=== PATIENT | male | born 1975 | race Caucasian/White ===

== ENCOUNTER 2021-12-13 09:51 | Outpatient (RCR) | payer OTHER, SELFPAY ==
--- NOTE | 2021-12-23 12:40 | HP.OTFCE_ITS ---
Floor (Occasional 1-33% of Day): 100# Floor (Frequent 34-66% of Day): 50# Floor (Constant 67-100% of Day): 20# Floor PDL: Heavy Knee (Occasional 1-33% of Day): 100# Knee (Frequent 34-66% of Day): 50# Knee (Constant 67-100% of Day): 20# Knee PDL: Heavy Waist (Occasional 1-33% of Day): 85# Waist (Frequent 34-66% of Day): 42# Waist (Constant 67-100% of Day): 17# Waist PDL: Medium-Heavy Shoulder (Occasional 1-33% of Day): 65# Shoulder (Frequent 34-66% of Day): 32# Shoulder (Constant 67-100% of Day): 13# Shoulder PDL: Medium-Heavy Overhead (Occasional 1-33% of Day): 35# Overhead (Frequent 34-66% of Day): 18# Overhead (Constant 67-100% of Day): 7# Overhead PDL: Light-Medium Comments: HEAVY PHYSICAL DEMAND LEVEL for lifting at floor and waist level. MEDIUM HEAVY PHYSICAL DEMAND LEVEL for lifting at waist and shoulder levels. LIGHT MEDIUM PHYSICAL DEMAND LEVEL for lifting overhead Bending: Frequent Ability (34-66% of day) Squatting: Frequent Ability (34-66% of day) Kneeling: Occasional Ability (1-33% of day) Comments: with use of external support kneeling on left knee only Reaching out: Constant Ability (67-100% of day) Reaching up: Constant Ability (67-100% of day) Sitting: Constant Ability (67-100% of day) Walking: Frequent Ability (34-66% of day) Standing: Frequent Ability (34-66% of day) Duration Sedentary Sedentary Light Light Light Medium Medium Medium Heavy Very Heavy Heavy Occasional (0-33% of day) Frequent (34-66% of day) Constant (67-100% of day) 10 # Negligible Negligible 15 # 8 # Negligible 20 # 10# Negli. 35 # 18 # 7 # 50 # 25 # 10 # 75 # 100 # >100 # 38 # 50 # >50 # 15 # 20 # >20 # Weight:: 95.254 kg Hand Dominance: right Medical History Including Restrictions: Pt was in good health until he stepped down off a trailer ladder and fell down on 2020. Pt states he had security take him across the street to an emergency care as he could not walk on his leg- pt states they took xray and was referred to Orthopedic dr. ( Dr. Knight) he underwent sx on 2020 with dx of displaced bicondylar fracture of right tibia- fx of head/neck of right femur. Pt states he has been participating in Physical therapy for a year. Pt states he feels it is going good. pt states he is doing Physical therapy 3x week for 3-4 hours a day-. pt states he struggles with right LE swelling ( but does not wear compression socks) pt states he did have to get larger shoe size as well. pt denies restrictions. Diagnoses: right displaced bicondylar fracture right tibia and fx head neck femur closed fx Symptoms: edema (does not wear compression hose) Pain: pt reports pain in right ankle. pt states stiffness of right knee. Tasha Pain scale. Score 24. Interpretation: ? minimum pain score: 0 (would not be seen in a person with true pain). ? maximum pain score: 78. ? The higher the pain score the greater the pain. References: Marlen Gee. The Tasha Pain Questionnaire: Major properties and scoring methods. Pain. 1975;. 1: 277- 299. Catarina Bailey. The [place] counterpart to Tasha Pain Questionnaire. Pain. 1988; 32: 251-255 Work History: [employer] for possibly 9 years. 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 pt state he has no concerns with driving but has concerns about climb on the back of trailers to secure steel loads- pt has concerned about being able to climb on the trailers as they sit about 4 feet or more off the ground- states he struggled before he broke his leg and the product that he is picking up does make the trailers oily- he does admit he has a fear of falling due to uncontrollable environmental conditions. Behavioral: pt was cooperative throughout assessment - ADLS: Pt lives with in two home with with w/c ramp- bedroom and bathroom are on 2nd floor- 15 stairs 1 rail- no difficulty. stands for shower in tub shower combination- pt does home mtg tasks as he has recovered to do all cooking- and grocery shopping. does work outside of home- works fulltime. pt indicates he can walk 2 miles prior needing to sit- Physical Examination: lower extremity functional scale. The Lower Extremity Functional Scale (LEFS) is a questionnaire containing 20 questions about a person?s. ability to perform everyday tasks. The LEFS can be used by clinicians as a measure of patients' initial. function, ongoing progress and outcome, as well as to set functional goals. The LEFS can be used to evaluate the functional impairment of a patient with a disorder of one or both lower. extremities. It can be used to monitor the patient over time and to evaluate the effectiveness of an. intervention. TOTAL SCORE 51/80 =63%. The lower the score the greater the disability. Source: Jude JIMENEZ, Nael PW, Patricia SA, Linden DL. The Lower Extremity Functional Scale (LEFS): scale. development, measurement properties, and clinical application. [facility]. Research Network. Professor Of Special Education. 1999 Jun;79(4):371-83. ROM: right knee 110* left knee 105 ( deficit may be due to muscle atrophy). pt demo full ROM of all other joints including neck, back, hips and UE. pt can turn neck on frequent ability. pt can reach on frequent ability. pt can trunk twisting on frequent ability. pt can wrist turning on frequent ability Strength: testing on Fet2 force of resistance. right shoulder flex/ext. 35/41# left 38/37#. right biceps/triceps 51/36# left 46/41#. right hip flexion 52# left 54#. right quad 56# left 39# peak force. right hamstring 55# left 57#. right plantarflexion 61# left 69#. pt demo with good functional strength noted slight decrease in hip flexion and left quad. Right Assistant Press Operator Offset Strength Average: 90.00 Right Assistant Press Operator Offset Strength Percentile: 13% Left Assistant Press Operator Offset Strength Average: 95.00 Left Assistant Press Operator Offset Strength Percentile: 28% Right Lateral Pinch Average: 9.00 Right Lateral Pinch Percentile: <10% Left Lateral Pinch Average: 10.00 Left Lateral Pinch Percentile: <10% Right Tripod Pinch Average: 10.00 Right Tripod Pinch Percentile: <10% Left Tripod Pinch Average: 10.00 Left Tripod Pinch Percentile: <10% Sensation: denies Fine Motor: denies deficits Balance: function reach test. testing at 11 reach. Interpretation: A score of 6 or less indicates a significant. increased risk for falls. A score between 6-10 inches indicates a. moderate risk for falls. pt above 10 reach indicating good balance. Get Up and Go test 8.22 sec. indicating good less chance of fall risk. An older adult who takes =12 seconds to complete the TUG is at risk for falling. Bending: Pt demo the ability to bend forward 3/3x, 10/10x and 10/10x rapidly pt reported low back pain 3/10. pt can bend forward on a frequent ability. Squatting: pt demo the ability to squat 3/3x, 10/10x and 10/10x rapidly. pt can squat on a frequent ability. Kneeling: pt demo the ability to kneel on left knee only 3/3x, 10/10x and 10/ 10 rapidly ( speed did not increase) pt did use external support. pt can kneel with external support on occasional ability Reaching out/up: pt competed reaching up/out 3/3, 10/10x and 10/10x rapidly. pt can reach out/up on frequent ability. Walking: pt ambulated 16 min with antalgic gait pattern- increase ambulation pt did increase antalgic wt.shift. pt report tired feeling and pain ranged from 3- 5/10. Standing: pt demo the ability to stand for 15min shifting body weight with no reported symptoms. pt can stand on frequent ability Sitting: pt demo the ability to sit for 50 min with no apparent or expressed discomfort. pt can sit on constant ability Climbing Stairs: pt ascended 10 steps with use of railing with a reciprocal step pattern and good ability. pt descended 10 steps with use of railing and with a reciprocal step pattern ( stomped down indicating decrease control) Floor Lift: pt demo the ability to lift 100# maximally from floor level with good body mechanics Knee Lift: pt demo the ability to lift 100# maximally from knee level with good body mechanics Waist Lift: pt demo the ability to lift 85# maximally from waist level with good body mechanics Shoulder Lift: pt demo the ability to lift 65# maximally from shoulder level with good body mechanics Overhead Lift: pt demo the ability to lift 35# maximally at overhead level with good body mechanics. Carrying: pt demo the ability to carry 20# with good ability for 20 feet with good ability Comments: push/pull ability of 125# for 20 feet.
--- NOTE | 2021-12-23 12:40 | HP.OTFCE.D ---
FCE D/C Summary - Discharge HELEN SALEH was seen for a one time visit for an FCE on 12/13/21 and is discharged.
== END 2021-12-13 19:00 | disposition home or self-care (01) ==
LOC: OT 09:51
DX: S33.5XXD Sprain of ligaments of lumbar spine, subsequent encounter (principal); X58.XXXD Exposure to other specified factors, subsequent encounter; S82.141D Displaced bicondylar fracture of right tibia, subsequent encounter for closed fracture with routine healing; S72.091D Other fracture of head and neck of right femur, subsequent encounter for closed fracture with routine healing; S73.101D Unspecified sprain of right hip, subsequent encounter
CPT/HCPCS: 97750